=== PATIENT | female | born 1975 | race Caucasian/White ===

== ENCOUNTER 2021-04-29 17:38 | Emergency (ER) | payer SELFPAY ==
[~2021-04-29] VITALS: Ht 170.2 cm; Wt 113.4 kg
[2021-04-29 18:20] VITALS: BP 178/99
== END 2021-04-29 18:34 | disposition left against medical advice (07) ==
LOC: EDBD 17:38 → ER 18:04
DX: T78.40XA Allergy, unspecified, initial encounter (principal); Z53.21 Procedure and treatment not carried out due to patient leaving prior to being seen by health care provider; X58.XXXA Exposure to other specified factors, initial encounter